=== PATIENT | female | born 1985 | race Caucasian/White ===

== ENCOUNTER 2021-04-09 20:56 | Emergency (ER) | payer OTHER ==
--- NOTE | 2021-04-09 22:01 | ERPHSYRPT ---
- History of Present Illness Time Seen by Provider: 04/09/21 21:10 Source: patient Exam Limitations: no limitations Patient Subjective Stated Complaint: abnormal labs from [facility] with potassium of 3.0, was told it was critical level and needed to come to ER Triage Nursing Assessment: pt had abnormal labs that were drawn this morning, potassium of 3.0. Pt also had uti but is currently being treated with macrobid 100mg po bid which started today. Lungs clear, heart tones reg. Physician History: Patient is a 36-year-old female presents to our ED from [facility] for treatment of a potassium level of 3.0. Patient states she was experiencing dysuria. Patient was found to have a urinary tract infection. Patient currently on Macrobid. Patient states that she otherwise feels well. Patient had pizza after the results of her potassium. So her current potassium may not be 3.0. This will need to be rechecked. Patient denies nausea or vomiting. No diarrhea. No rash. Patient voices no other complaints or concerns at this time. Timing/Duration: today Severity: moderate Modifying Factors: Improves With: nothing Associated Symptoms: denies symptoms Allergies/Adverse Reactions: No Known Drug Allergies Allergy (Verified 04/09/21 21:15) Home Medications: Nitrofurantoin Monohyd/M-Cryst [Macrobid 100 mg Capsule] 100 mg PO BID 04/09/21 [History] Hx Tetanus, Diphtheria Vaccination/Date Given: Yes Hx Influenza Vaccination/Date Given: No Hx Pneumococcal Vaccination/Date Given: No Immunizations Up to Date: Yes Travel Risk - International Travel Have you traveled outside of the country in past 3 weeks: No - Coronavirus Screening Are you exhibiting any of the following symptoms?: No Close contact with a COVID-19 positive Pt in past 14-21 Days: No - Vaccine Status Have you recieved a Covid-19 vaccination: No - Review of Systems Constitutional: No Symptoms, No Fever, No Chills Eyes: No Symptoms Ears, Nose, & Throat: No Symptoms Respiratory: No Symptoms, No Cough, No Dyspnea Cardiac: No Symptoms, No Chest Pain, No Edema, No Syncope Abdominal/Gastrointestinal: No Symptoms, No Abdominal Pain, No Nausea, No Vomiting, No Diarrhea Genitourinary Symptoms: No Symptoms, No Dysuria Musculoskeletal: No Symptoms, No Back Pain, No Neck Pain Skin: No Symptoms, No Rash Neurological: No Symptoms, No Dizziness, No Focal Weakness, No Sensory Changes Psychological: No Symptoms Endocrine: No Symptoms Hematologic/Lymphatic: No Symptoms Immunological/Allergic: No Symptoms All Other Systems: Reviewed and Negative - Past Medical History Pertinent Past Medical History: Yes Neurological History: Seizures ENT History: Other Cardiac History: No Pertinent History Respiratory History: Bronchitis, Other Endocrine Medical History: No Pertinent History Musculoskeletal History: No Pertinent History GI Medical History: No Pertinent History History: No Pertinent History Psycho-Social History: No Pertinent History Female Reproductive Disorders: Other - Past Surgical History Past Surgical History: Yes Neuro Surgical History: No Pertinent History Cardiac: No Pertinent History Respiratory: No Pertinent History Gastrointestinal: No Pertinent History Genitourinary: No Pertinent History Musculoskeletal: No Pertinent History Female Surgical History: Tubal Ligation Other Surgical History: tonsils - Social History Smoking Status: Former smoker How long have you smoked: 10 Exposure to second hand smoke: No Alcohol Use: None Drug Use: none Patient Lives Alone: No Significant Family History: no pertinent family hx - Female History Hx Now: No - Nursing Vital Signs Nursing Vital Signs: Initial Vital Signs Temperature 99.9 F 04/09/21 21:05 Pulse Rate 96 H 04/09/21 21:05 Respiratory Rate 18 04/09/21 21:05 Blood Pressure 172/102 04/09/21 21:05 O2 Sat by Pulse Oximetry 98 04/09/21 21:05 Pain Scale Pain Intensity 3 - Physical Exam General Appearance: no apparent distress, alert Eye Exam: PERRL/EOMI, eyes nml inspection Ears, Nose, Throat Exam: normal ENT inspection, TMs normal, pharynx normal, j[address] mucous membranes Neck Exam: normal inspection, non-tender, supple, full range of motion Respiratory Exam: normal breath sounds, lungs clear, No respiratory distress Cardiovascular Exam: regular rate/rhythm, normal heart sounds, normal peripheral pulses Gastrointestinal/Abdomen Exam: soft, normal bowel sounds, No tenderness, No mass Back Exam: normal inspection, normal range of motion, No CVA tenderness, No vertebral tenderness Extremity Exam: normal inspection, normal range of motion, pelvis stable Neurologic Exam: alert, oriented x 3, cooperative, normal mood/affect, nml cerebellar function, nml station & gait, sensation nml, No motor deficits Skin Exam: normal color, warm, dry, No rash Lymphatic Exam: No adenopathy SpO2 Interpretation: normal SpO2: 98 O2 Delivery: Room Air - Course Nursing assessment & vital signs reviewed: Yes EKG Interpreted by Me: RATE ([id number]), Sinus Rhythm, NORMAL AXIS, NORMAL INTERVALS Ordered Tests: Active Orders 24 hr Category Date Time Status EKG-ER Only STAT Care 04/09/21 21:53 Active Pulse Oximetry (ED) STAT Care 04/09/21 21:53 Active CBC W DIFF Stat Lab 04/09/21 22:11 Completed CMP Stat Lab 04/09/21 22:11 Completed TROPONIN Q3H Lab 04/09/21 22:11 Completed TROPONIN Q3H Lab 04/10/21 01:00 Ordered TROPONIN Q3H Lab 04/10/21 04:00 Ordered TROPONIN Q3H Lab 04/10/21 07:00 Ordered TROPONIN Q3H Lab 04/10/21 10:00 Ordered Medication Summary Discontinued Medications Generic Name Dose Route Start Last Admin Trade Name Freq PRN Reason Stop Dose Admin Levofloxacin 500 mg 04/09/21 23:52 04/09/21 23:55 Levofloxacin 250 Mg Tab PO 04/09/21 23:53 500 mg STAT ONE Administration Potassium Chloride 40 meq 04/09/21 23:14 04/09/21 23:21 Potassium Chloride 10 Meq Tablet PO 04/09/21 23:15 40 meq STAT ONE Administration Potassium Chloride Confirm 04/09/21 23:21 Potassium Chloride 10 Meq Tablet Administered 04/09/21 23:22 Dose 40 meq PO .STK-MED ONE Lab/Rad Data: Laboratory Result Diagrams 04/09/21 22:11 04/09/21 22:11 Laboratory Results 04/09/21 04/09/21 04/09/21 Range/Units 22:11 22:11 22:11 WBC 14.6 H (4.0-10.5) K/mm3 RBC 4.34 (4.1-5.4) M/mm3 Hgb 12.6 (12.0-16.0) gm/dl Hct 39.6 (35-47) % MCV 91.2 (78-100) fl MCH 29.0 (26-32) pg MCHC 31.8 L (32-36) g/dl RDW 13.5 (11.5-14.0) % Plt Count 123 L (150-450) K/mm3 MPV 12.0 H (7.5-11.0) fl Gran % 89.0 H (36.0-66.0) % Eos # (Auto) 0.03 (0-0.5) Absolute Lymphs (auto) 0.66 L (1.0-4.6) Absolute Monos (auto) 0.91 (0.0-1.3) Lymphocytes % 4.5 L (24.0-44.0) % Monocytes % 6.2 (0.0-12.0) % Eosinophils % 0.2 (0.00-5.0) % Basophils % 0.1 (0.0-0.4) % Absolute Granulocytes 13.02 H (1.4-6.9) Basophils # 0.01 (0-0.4) Sodium 138 (137-145) mmol/L Potassium 3.0 L* (3.5-5.1) mmol/L Chloride 105 (98-107) mmol/L Carbon Dioxide 21 L (22-30) mmol/L Anion Gap 15.1 H (5-15) MEQ/L BUN 11 (7-17) mg/dL Creatinine 0.73 (0.52-1.04) mg/dL Estimated GFR > 60.0 ML/MIN Glucose 117 H (74-106) mg/dL Calcium 9.0 (8.4-10.2) mg/dL Total Bilirubin 0.70 (0.2-1.3) mg/dL AST 40 H (14-36) U/L ALT 21 (0-35) U/L Alkaline Phosphatase 115 (38-126) U/L Troponin I < 0.012 (0.000-0.034) ng/mL Serum Total Protein 6.5 (6.3-8.2) g/dL Albumin 3.8 (3.5-5.0) g/dL - Progress Progress: improved Progress Note: We repeated patient's labs as she had eaten shortly after obtaining her lab results. Repeat labs show potassium 3.0. Patient received 40 mEq potassium orally. Patient also had a meal in our ED. I spoke to Dr. Zacarias regarding [facility] concerns of possible pyelonephritis. Dr. Zacarias advised stopping the Macrobid and administering a dose of Levaquin instead. I will forward a prescription of Levaquin to patient's pharmacy. Patient understands that if she feels that her symptoms are worsening she should return to the ED for reevaluation. Dr. Zacarias will see patient next week to reassess the potassium. EKG done in our ED showed a sinus rhythm. No findings concerning for hypokalemia. No U waves. No T wave inversions. No QT prolongation. No ST segment depressions. No arrhythmias observed. Portions of this note were created with voice recognition technology. There may be grammatical, spelling, punctuation or sound alike errors 04/09/21 23:56 Counseled pt/family regarding: lab results, diagnosis, need for follow-up - Departure Departure Disposition: Home Clinical Impression: Leukocytosis (leucocytosis), Hypokalemia, Thrombocytopenia Condition: Stable Critical Care Time: No Referrals: YURY ZACARIAS [Primary Care Provider] - Follow up/PCP as directed Additional Instructions: Please discontinue the Macrobid antibiotic. Please start taking the Levaquin antibiotic that was forwarded to your pharmacy. Schedule a follow-up appointment with Dr. Zacarias tomorrow. Dr. Zacarias will see you early next week to repeat your potassium level and reassess the progress of your urinary tract infection. Discharge/Care Plan OLIVIERSHON GAMBOA was seen on 04/09/21 in the Emergency Room. The patient was counseled regarding Diagnosis,Lab results, Imaging studies, need for follow up and when to return to the Emergency Room. Prescriptions given: Discharge Note I have spoken with the patient and/or caregivers. I have explained the patient's condition, diagnosis and treatment plan based on the information available to me at this time. I have answered the patient's and/or caregiver's questions and addressed any concerns. The patient and/or caregivers have as good understanding of the patient's diagnosis, condition and treatment plan as can be expected at this point. The vital signs have been stable. The patient's condition is stable and appropriate for discharge from the emergency department. The patient will pursue further outpatient evaluation with the primary care physician or other designated or consulting physician as outlined in the discharge instructions. The patient and/or caregivers are agreeable to this plan of care and follow-up instructions have been explained in detail. The patient and/or caregivers have received these instruction. The patient/and or caregivers are aware that any significant change in condition or worsening of symptoms should prompt an immediate return to this or the closest emergency department or call 911. Prescriptions: Levofloxacin [Levaquin 500 MG Tablet] 500 mg PO DAILY 7 Days #7 tablet
[2021-04-09 22:14] LABS: Absolute Neutrophil Ct (ANC) 13.02 (1.4-6.9); BASOPHIL % 0.1 % (0.0-0.4); Basophil (Absolute #) 0.01 (0-0.4); Eosinophil % 0.2 % (0.00-5.0); Eosinophil (Absolute #) 0.03 (0-0.5); Hematocrit 39.6 % (35-47); Hemoglobin 12.6 gm/dl (12.0-16.0); Lymphocyte (Absolute #) 0.66 (1.0-4.6); Lymphocytes % 4.5 % (24.0-44.0); Mean Cell Volume 91.2 fl (78-100); Mean Corpuscular Hgb Concent. 31.8 g/dl (32-36); Monocyte (Absolute #) 0.91 (0.0-1.3); Monocytes % 6.2 % (0.0-12.0); Platelet Count 123 K/mm3 (150-450); Red Blood Count 4.34 M/mm3 (4.1-5.4); Red Cell Distribution Width 13.5 % (11.5-14.0); White Blood Count 14.6 K/mm3 (4.0-10.5)
[2021-04-09 23:04] LABS: ALBUMIN 3.8 g/dL (3.5-5.0); ALKALINE PHOSPHATASE 115 U/L (38-126); ANION GAP 15.1 MEQ/L (5-15); BLOOD UREA NITROGEN 11 mg/dL (7-17); CHLORIDE 105 mmol/L (98-107); Carbon Dioxide 21 mmol/L (22-30); Creatinine 1 0.73 mg/dL (0.52-1.04); EST GLOMERULAR FILTRATION RATE > 60.0 ML/MIN; Glucose 117 mg/dL (74-106); SGOT/AST 40 U/L (14-36); SGPT/ALT 21 U/L (0-35); SODIUM 138 mmol/L (137-145); Total Protein 6.5 g/dL (6.3-8.2)
[2021-04-09] MEDS ORDERED: Klor Con 10 MEQ PO ONE ×2 (23:14→23:21)
[2021-04-09 23:35] VITALS: PULSE 85
[2021-04-09] MEDS ORDERED: Levofloxacin 250MG Tablet PO ONE (23:52)
[2021-04-09] MEDS ORDERED: Levofloxacin 250MG Tablet ONE (23:54)
[2021-04-10 00:05] VITALS: BP 163/98; O2SAT 96
== END 2021-04-10 00:11 | disposition home or self-care (01) ==
LOC: ED 20:56
DX: E87.6 Hypokalemia (principal); D72.829 Elevated white blood cell count, unspecified; D69.6 Thrombocytopenia, unspecified
CPT/HCPCS: 36415; 80053; 84484; 85025; 93005; 94760; 99284; A9270-GY